=== PATIENT | female | born 1955 | race Caucasian/White ===

== ENCOUNTER → 2023-10-05 09:35 | Outpatient (REF) | payer BC, SELFPAY | LOC: HWRAD 09:35 | PROVIDERS: ATTENDING PHYSICIAN Family Medicine | DX: I10 Essential (primary) hypertension (principal) | CPT/HCPCS: 71046 ==

== ENCOUNTER → 2024-06-20 14:39 | Outpatient (REF) | payer BC, SELFPAY | LOC: HWRAD 14:39 | PROVIDERS: ATTENDING PHYSICIAN Family Medicine | DX: N64.4 Mastodynia (principal) | CPT/HCPCS: 71046; 71100 ==

== ENCOUNTER → 2024-07-13 10:45 | Outpatient (REF) | payer BC, SELFPAY | LOC: HWRAD 10:45 | PROVIDERS: ATTENDING PHYSICIAN Family Medicine | DX: Z78.0 Asymptomatic menopausal state (principal); S22.39XA Fracture of one rib, unspecified side, initial encounter for closed fracture | CPT/HCPCS: 77080 ==